=== PATIENT | female | born 1955 ===

== ENCOUNTER → 2016-12-25 | Outpatient (CLI) | payer MEDICAID | END | disposition disaster alternative care site (69) | LOC: GAMB 18:39 | DX: R07.89 Other chest pain (principal); R51 Headache; R20.0 Anesthesia of skin; R11.0 Nausea; Z79.899 Other long term (current) drug therapy; Z88.0 Allergy status to penicillin; Z88.1 Allergy status to other antibiotic agents ==

== ENCOUNTER → 2017-02-04 | Outpatient (CLI) | payer MEDICARE, MEDICAID | END | disposition disaster alternative care site (69) | LOC: GAMB 12:51 | DX: R07.9 Chest pain, unspecified (principal); M79.602 Pain in left arm; R06.02 Shortness of breath; Z86.718 Personal history of other venous thrombosis and embolism; Z88.0 Allergy status to penicillin; Z88.2 Allergy status to sulfonamides | CPT/HCPCS: A0422; A0425; A0427 ==

== ENCOUNTER 2017-03-11 16:54 | Emergency (ER) | payer MEDICARE, MEDICAID ==
--- NOTE | ~2017-03-11 | ER ---
PATIENT'S NAME: JUDY LOU [facility] AGE: 61 Y [address] ROOM: [place] [address] LOCATION: [facility] ADMIT DATE: 03/11/2017 ER/Outpatient Report DISCHARGE DATE: 03/11/2017 FAMILY PHYSICIAN: Wilma Chirinos ATTENDING PHYSICIAN: Anton Dumont ADDENDUM: EMERGENCY DEPARTMENT COURSE: The patient was initially seen by Dr. Dumont, was checked out to me with pending second set of cardiac enzymes. Repeat cardiac enzymes were negative. The patient was discharged. ASSESSMENT: Chest pain, noncardiac. PLAN: Follow up with her regular doctor as needed. BALJEET SULLIVAN MD JDB/modl /[id number] d: 03/12/17 0416 t: 03/12/17 0455, OUTPATIENT REPORT
--- NOTE | ~2017-03-11 | ER ---
PATIENT'S NAME: JUDY LOU [facility] AGE: 61 Y [address] ROOM: [place] [address] LOCATION: ED ADMIT DATE: 03/11/2017 ER/Outpatient Report DISCHARGE DATE: 03/11/2017 FAMILY PHYSICIAN: Wilma Chirinos ATTENDING PHYSICIAN: Anton Dumont Time of Arrival: 1654 hours. Time of Evaluation: 1707 hours. CHIEF COMPLAINT: Chest pain. HISTORY OF PRESENT ILLNESS: The patient is a 61-year-old female who presents to the emergency department today with chief complaint of chest pain. She reports it has been off and on for the past 2 days. This episode started about 4 hours prior to arrival. She reports some nausea and vomiting. She does report that she has had a quite bit of stress in her life recently. She states she had some dry mouth as well. Denies any shortness of breath. No ripping or tearing sensation. No radiation to the back. No history of DVT or PE. No diaphoresis. PAST MEDICAL HISTORY: Anxiety. PAST SURGICAL HISTORY: Heart catheterization which was negative just a few months ago, breast reduction, ankle surgery, appendectomy, and gallbladder. SOCIAL HISTORY: The patient denies any tobacco, alcohol, or illicit drug use. ALLERGIES: PENICILLIN, ERYTHROMYCIN, TORADOL, NSAIDS, AND ULTRAM. MEDICATIONS: 1. Metoprolol. 2. Aspirin. 3. Neurontin. 4. Ativan. 5. Trazodone. PRIMARY CARE DOCTOR: Dr. Chirinos in [place]. REVIEW OF SYSTEMS: PATIENT'S NAME: JUDY LOU [facility] AGE: 61 Y [address] ROOM: [place] [address] LOCATION: [facility] ADMIT DATE: 03/11/2017 ER/Outpatient Report DISCHARGE DATE: 03/11/2017 FAMILY PHYSICIAN: Wilma Chirinos ATTENDING PHYSICIAN: Anton Dumont All systems are reviewed by myself and are negative with the exception of those discussed in HPI and past medical history. PHYSICAL EXAMINATION: VITAL SIGNS: Weight 87.4 kg. Blood pressure 141/66, pulse 64, respiratory rate 14, temperature 98.6, and oxygen saturation 94% on room air. GENERAL: The patient is a 61-year-old female, appears stated age, in no acute distress at this time. HEENT: Normocephalic, atraumatic. Pupils are equal, round, and reactive to light and accommodation. Extraocular motions are intact. Nares are patent bilaterally. TMs are clear. Oropharynx is clear. NECK: Supple. There is no nuchal rigidity. CARDIOVASCULAR: Regular rate and rhythm. No murmurs, rubs, or gallops. LUNGS: Clear to auscultation bilaterally. No wheezes, rales, or rhonchi. ABDOMEN: Soft, nontender, and nondistended. No rebound, rigidity, or guarding. MUSCULOSKELETAL: The patient moves all 4 extremities. SKIN: Warm and dry. There are no rashes or lesions noted. LABORATORY DATA AND X-RAYS: EKG is obtained and is interpreted by myself at 1707 hours shows sinus rhythm with a rate of 62, normal axis, normal interval. No ST elevation, ST depression, or T-wave inversions. CBC: White blood cell count 13.7, otherwise normal. Occult blood is negative. Lactate is normal. Coags are normal. CMP: Unremarkable except for potassium 3.3, glucose 134. LFTs are normal. Magnesium is normal. Procalcitonin is less than 0.05. CK-MB, CK, and troponin are all normal. Repeat 2-hour enzymes and EKG are pending. IMPRESSION: 1. Chest pain, unclear etiology at this time. 2. Please see Dr. Pool's dictation. 3. Initial visit. EMERGENCY DEPARTMENT COURSE: The patient was brought back to the examination room. Seen and evaluated by myself. IV is established. Laboratory analysis and imaging are obtained as described above. The results are obtained and discussed with the patient. I have discussed the case with Dr. Pool at [facility], who will follow up on 2-hour cardiac enzymes. Please see his dictation. DISPOSITION: The patient is discharged per Dr. Pool. PATIENT'S NAME: JUDY LOU [facility] AGE: 61 Y [address] ROOM: [place], [place] [address] LOCATION: [facility] ADMIT DATE: 03/11/2017 ER/Outpatient Report DISCHARGE DATE: 03/11/2017 FAMILY PHYSICIAN: Wilma Chirinos ATTENDING PHYSICIAN: Anton Dumont DO CHARLETTE GUERRA/sarbjit /[id number] d: 03/13/17 1917 t: 03/22/17 0651, OUTPATIENT REPORT
[2017-03-11 17:35] LABS: BASOPHIL % 0.1 %; EOSINOPHIL % 0.1 %; HEMATOCRIT 41.4 % (33.0-46.0); HEMOGLOBIN 14.6 g/dL (10.0-15.0); IMMATURE GRANULOCYTE # 0.1 K/uL (0.0-0.3); IMMATURE GRANULOCYTE % 0.4 %; LYMPHOCYTE # 2.4 K/uL (0.8-4.0); LYMPHOCYTE % 17.4 %; MCH 31.3 pg (27.0-34.0); MCHC 35.3 gm/dL (32.0-36.5); MCV 88.8 fl (83.0-98.0); MONOCYTE # 0.8 K/uL (0.0-1.0); MONOCYTE % 5.6 %; MPV 10.4 fl (9.4-12.4); NEUTROPHIL # (ANC) 10.5 K/uL (1.8-7.8); NEUTROPHIL % 76.4 %; NRBC % 0 /100WBC (0-0.00); PLATELET COUNT 241 K/uL (150-450); RBC 4.66 M/uL (3.50-5.50); RDW-CV 13.2 % (11.9-14.6); WBC 13.7 K/uL (4.0-11.0)
[2017-03-11 17:43] LABS: INR - (THERAPEUTIC) 1.06 (0.92-1.07); PROTIME 11.1 SECONDS (9.8-11.4); PTT 23 SECONDS (25-32)
[2017-03-11 17:55] LABS: ALBUMIN 3.7 gm/dL (3.5-5.0); ALK PHOS 79 IU/L (33-138); ALT 22 IU/L (12-78); ANION GAP 16.3 (10.0-19.0); AST 17 IU/L (10-40); BLOOD UREA NITROGEN 27 mg/dL (6-24); CALCIUM 8.9 mg/dL (8.5-10.5); CHLORIDE 102 mMol/L (96-110); CO2 20 mMol/L (22-32); CPK 155 IU/L (21-215); CREATININE 1.2 mg/dL (0.5-1.1); ESTIMATED GFR (MDRD EQUATION) 46; POTASSIUM 3.3 mMol/L (3.7-5.1); SODIUM 135 mMol/L (135-145); TOTAL BILIRUBIN 0.7 mg/dL (0.0-1.5); TOTAL PROTEIN 7.8 g/dL (6.0-8.4)
[2017-03-11 20:15] LABS: CPK 146 IU/L (21-215)
== END 2017-03-11 20:30 | disposition disaster alternative care site (69) ==
LOC: GMED 16:54
PROVIDERS: Emergency Medicine
DX: R07.89 Other chest pain (principal); F41.9 Anxiety disorder, unspecified; Z88.0 Allergy status to penicillin; Z88.1 Allergy status to other antibiotic agents; Z88.8 Allergy status to other drugs, medicaments and biological substances; Z88.5 Allergy status to narcotic agent; Z79.82 Long term (current) use of aspirin; Z79.899 Other long term (current) drug therapy; Z90.49 Acquired absence of other specified parts of digestive tract; Z95.818 Presence of other cardiac implants and grafts
CPT/HCPCS: J2405; J7030

== ENCOUNTER → 2017-03-24 | Outpatient (CLI) | payer MEDICARE, MEDICAID | END | disposition disaster alternative care site (69) | LOC: LFPA 11:38 | DX: Z87.898 Personal history of other specified conditions (principal) ==

== ENCOUNTER → 2017-05-04 | Emergency (ER) | payer MEDICARE, MEDICAID | END | disposition disaster alternative care site (69) | LOC: GAMB 15:19 | DX: R53.1 Weakness (principal); Z96.659 Presence of unspecified artificial knee joint; W19.XXXA Unspecified fall, initial encounter ==